=== PATIENT | male | born 1990 | race Caucasian/White ===

== ENCOUNTER 2017-06-12 11:49 | Emergency (ER) | payer OTHER, BC ==
[~2017-06-12] VITALS: Ht 170.2 cm; Wt 75.3 kg
--- NOTE | 2017-06-12 12:29 | PHYS DOC ---
Past History Past Medical History: No Pertinent History Past Surgical History: No Surgical History Alcohol Use: None Drug Use: None Adult General Chief Complaint Chief Complaint: ELBOW PROBLEM HPI HPI Patient is a 26 year old M who presents with left elbow pain. Patient states he was at work coming down ladder lost his footing and fell hitting his left elbow on one of the rungs of the ladder. Patient states he has some tenderness to palpation on the medial side of the elbow. He should states he has some numbness and tingling in his ring and pinky finger. Patient sustained no other injuries. Patient did not hit his head. Patient had no loss of consciousness. Review of Systems Review of Systems GEN: Denies fevers, chills, sweats HEENT: Denies blurred vision, sore throat CV: Denies chest pain RESP: Denies shortness of air, cough GI: Denies n/v/d NEURO: Denies confusion, dizziness MSK: Left elbow pain Allergies Allergies Allergies Coded Allergies Type Severity Reaction Last Updated Verified No Known Drug Allergies 01/26/16 No Physical Exam Physical Exam GEN.: No apparent distress. Alert and oriented. HEENT: Head is normocephalic, atraumatic NECK: Supple. LUNGS: CTAB. HEART: RRR, S1, S2 present. Peripheral pulses intact ABDOMEN: Soft, nontender. Positive bowel sounds. EXTREMITIES: Without any cyanosis, positive tenderness palpation to the medial condyle of the left elbow, decreased range of motion secondary to pain. No tenderness to palpation to the Left shoulder. Hand is neurovascular intact on the left NEUROLOGIC: Normal speech, normal tone PSYCHIATRIC: Normal affect, normal mood. SKIN: No ulcerations EKG EKG [] Radiology/Procedures Radiology/Procedures X-ray left elbow shows no obvious fracture [] Course & Med Decision Making Course & Med Decision Making Pertinent Labs and Imaging studies reviewed. (See chart for details) ED course: Patient was seen and examined emergency room x-ray of the left elbow was ordered 1241: Patient was updated on x-ray findings and recommended follow-up with PCP MDM: After reviewing the chart, CC/HPI/PMH, physical exam, [radiological results], I do not believe the patient sustained a significant injury to the left elbow warranting further workup and/or admission at this time. Patient is stable for discharge. Additional verbal discharge instructions were provided to the patient and that if symptoms get worse or any new symptoms arise that are worrisome to the patient he is to return to the emergency room immediately [] Dragon Disclaimer Dragon Disclaimer This chart was dictated in whole or in part using Voice Recognition software in a busy, high-work load, and often noisy Emergency Department environment. It may contain unintended and wholly unrecognized errors or omissions. Departure Departure: Impression: Primary Impression: Left elbow pain Disposition: HOME, SELF-CARE Condition: IMPROVED Referrals: PCP,NO (PCP) Patient Instructions: Elbow Injury Additional Instructions: Please follow up with her family doctor next one to 2 days WILLIAM KENT DO Jun 12, 2017 12:29
--- NOTE | 2017-06-12 12:38 | RAD ---
Left elbow radiograph 2 view 06/12/2017 Indication: Left elbow trauma with numbness radiating to the hand. Comparison: None. Findings: No acute fracture or traumatic malalignment. Joint spaces are maintained. No abnormal periarticular calcifications Impression: No acute osseous abnormality.
[2017-06-12 13:00] VITALS: BP 121/73
== END 2017-06-12 13:00 | disposition home or self-care (01) ==
LOC: ER 11:49
DX: M25.522 Pain in left elbow (principal); R20.0 Anesthesia of skin
CPT/HCPCS: 73080; 99284